=== PATIENT | male | born 1965 | race Caucasian/White ===

== ENCOUNTER 2021-07-31 00:06 | Day surgery (SDC) | payer OTHER, SELFPAY ==
[2021-07-31 06:44] VITALS: BP 137/77; PULSE 91; RESP 17; TEMP 36.1; O2SAT 96; BMI 35.8
[2021-07-31] MEDS: LACTATED RINGERS 1,000 ML 150 ML IV CONT (06:55)
--- NOTE | 2021-07-31 07:20 | WPDGICN ---
Assessment and Plan Assessment and plan (1) Screen for colon cancer: Code(s): Z12.11 - Encounter for screening for malignant neoplasm of colon Status: Acute Assessment and Plan: Patient presents for neoplasia screening today. He does have a family history of colon polyps in his mother. Further recommendations will be given after endoscopy. (2) Alcohol use disorder: Status: Acute (3) BMI 37.0-37.9, adult: Code(s): Z68.37 - Body mass index [BMI] 37.0-37.9, adult Status: Acute GI Consult Note Consult date/time: 07/31/21 07:20 HPI: Mark Villarreal is a 56 year old male Presents for screening colonoscopy. Patient's current weight appetite bowel movements are normal. He denies abdominal pain. He has had no bleeding. Family history is significant his mother has had colon polyps. His maternal uncle has had colon cancer. Patient presents today for neoplasia screening. Review of Systems Review of Systems: All systems reviewed & are unremarkable except as noted in HPI and below PMFSH Past Medical History Medical History (Updated 04/24/21 @ 18:23 by Todd Aggarwal MD) Alcohol use disorder Anxiety disorder, unspecified BMI 37.0-37.9, adult Erectile dysfunction Screen for colon cancer Family History Family History Grandparent Diabetes mellitus Social History Social History Smoking packs per day: 1.5 Smoking cigarettes per day: 30.0 Years smoked: 42 Smoking pack-years: 63.00 Smoking status: Current every day smoker Tobacco type: cigarettes Alcohol intake: current Drinks per week: 100 Alcohol use details: beer Living arrangements: with family Spiritual care concerns: No Meds Home Medications and Allergies Home Medications Medication Instructions Recorded Confirmed Type sildenafil 100 mg tablet 100 mg PO DAILY PRN #10 tablet 04/27/21 07/31/21 Rx Allergies Allergy/AdvReac Type Severity Reaction Status Date / Time No Known Allergies Allergy Verified 07/31/21 06:43 Vital Signs Vital Signs - 24 hr 07/31/21 06:44 Temperature 97 F L Pulse Rate 91 Respiratory Rate 17 Blood Pressure 137/77 Pulse Oximetry 96 Exam Narrative: Physical exam reveals patient to be alert. Vital signs stable. HEENT exam is unremarkable. Patient is anicteric. Lungs are clear to auscultation and percussion. Heart is without murmur or extra sounds. Abdominal exam is somewhat obese. Bowel sounds are present soft nontender with no organomegaly. Digital external rectal exam is normal.
--- NOTE | 2021-07-31 07:41 | WPDANESEPPF ---
Anes - Initial Pre Proc Eval Procedure: Operation Date: 07/31/21 08:00 Proposed Procedures p Screening Colonoscopy - Sudhakar Nicole MD Date/Time: 07/31/21 07:41 Surgeon: Sudhakar Nicole MD Pre Op Diagnosis: neoplasm screening Patient Data Age: 56 Gender: M Height: 1.78 m Weight: 113.2 kg Last Vital Signs Temp 97 F L 07/31/21 06:44 Pulse 91 07/31/21 06:44 Resp 17 07/31/21 06:44 BP 137/77 07/31/21 06:44 Pulse Ox 96 07/31/21 06:44 Allergies Allergy/AdvReac Type Severity Reaction Status Date / Time No Known Allergies Allergy Verified 07/31/21 06:43 Home Medications Medication Instructions Recorded Confirmed Type sildenafil 100 mg tablet 100 mg PO DAILY PRN #10 tablet 04/27/21 07/31/21 Rx Patient hx anesthesia problems: none Family hx anesthesia problems: none Results Review: All pre-operative results and documents have been reviewed as part of the pre-operative evaluation. [facility] Past Medical History Medical History (Updated 04/24/21 @ 18:23 by Todd Aggarwal MD) Alcohol use disorder Anxiety disorder, unspecified BMI 37.0-37.9, adult Erectile dysfunction Screen for colon cancer Family History Family History Grandparent Diabetes mellitus Social History Social History Smoking packs per day: 1.5 Smoking cigarettes per day: 30.0 Years smoked: 42 Smoking pack-years: 63.00 Smoking status: Current every day smoker Tobacco type: cigarettes Alcohol intake: current Drinks per week: 100 Alcohol use details: beer Living arrangements: with family Spiritual care concerns: No Anes - Eval Final PreProcedure Day of Procedure 07/31/21 07:41 Patient weight: obese Heart: regular rate and rhythm Lungs: clear to auscultation Airway: Mallampati scale class III Neurological: alert and oriented Last oral intake: >/= 8 hours ASA classification: III Emergent: no Anesthetic plan: proceed Anesthesia type and monitoring: general GIVS and standard monitoring Results Review: All pre-operative results and documents have been reviewed as part of the pre-operative evaluation. Informed Consent: The patient's anesthetic plan and its attendant risks and benefits were discussed with the patient/family/POA. Questions were solicited and answers provided to the satisfaction of the patient/family/POA.
[2021-07-31 08:22] VITALS: BP 130/75; PULSE 76; RESP 20; O2SAT 95
[2021-07-31 08:32] VITALS: BP 162/92; PULSE 74; RESP 23; O2SAT 96
[2021-07-31 08:42] VITALS: BP 128/82; PULSE 67; RESP 22; O2SAT 95
== END 2021-07-31 08:52 | disposition home or self-care (01) ==
PROVIDERS: PCP Family Medicine; Visit Provider Internal Medicine Gastroenterology
PROC: 0DJD8ZZ Inspection of Lower Intestinal Tract, Via Natural or Artificial Opening Endoscopic (ICD-10-PCS; CPT 45378; principal; 2021-07-31 08:00)
DX: Z12.11 Encounter for screening for malignant neoplasm of colon (principal); K63.3 Ulcer of intestine; K64.8 Other hemorrhoids; Z83.71 Family history of colonic polyps; N52.9 Male erectile dysfunction, unspecified; F17.210 Nicotine dependence, cigarettes, uncomplicated; E66.9 Obesity, unspecified; Z68.35 Body mass index [BMI] 35.0-35.9, adult
CPT/HCPCS: 45380; 88305; J2704; J7120